=== PATIENT | female | born 1990 | race Caucasian/White ===

== ENCOUNTER → 2023-10-29 | Outpatient (CLI) | payer BC, OTHER ==
--- NOTE | 2023-10-29 14:39 | US ---
EXAMINATION TYPE: Transabdominal DATE OF EXAM: 10/29/2023 1:57 PM COMPARISON: NONE CLINICAL INDICATION: Female, 33 years old with history of Z36.89 ENCOUNTER FOR OTHER SPECIFIED ANTENA APRYL SCR; Confirm Dates EXAM PERFORMED: Transabdominal (TA) EXAM MEASUREMENTS: GESTATIONAL AGE / DATING Physician Established: (13 weeks/3 days) EDC: 05/02/2024 Dates by LMP: (13 weeks/3 days) EDC: 05/02/2024 Dates by First Scan: No previous this is first scan Dates by Current Scan for: (12 weeks/2 days) EDC: 05/10/2024 MATERNAL ANATOMY Uterus: 12.1 x 9.4 x 9.8 cm Right Ovary: 3.4x 2.6 x 2.3 cm Left Ovary: 3.2 x 2.4 x 1.7 cm Post CDS / Adnexa: wnl Presence of free fluid: No Presence of corpus luteal cyst: Right Ovary= 2.0 x 1.6 x 1.8 cm Presence of subchorionic bleed: No GESTATION / SURVEY CRL: 5.7 cm (12 weeks/2 days) MSD: wnl Heart Rate: 155 bpm Rhythm: Normal IUP: Viable IUP Nuchal Translucency 10-14wks (normal less than 3mm): 1mm Date of LMP: 07/27/2023 Single, viable IUP/ No abnormality visualized at this time IMPRESSION: Single live intrauterine with calculated ultrasound age of 12 weeks 2 days with an estimate d date of delivery of 05/10/2024.
== END | disposition home or self-care (01) ==
LOC: RADUSWWP 13:41
PROVIDERS: ATTEND Obstetrics & Gynecology
DX: Z36.89 Encounter for other specified antenatal screening (principal); Z3A.12 12 weeks gestation of pregnancy
CPT/HCPCS: 76801

== ENCOUNTER 2024-05-05 10:17 | Inpatient (IN) | payer BC, OTHER ==
[2024-04-27 15:11] VITALS: BMI 33.7
[2024-05-05] MEDS ORDERED: METHYLERGONOVINE 0.2 MG/ML 1 ML AMP IM PRN (10:36)
[2024-05-05] MEDS ORDERED: OXYTOCIN 10 UNIT/ML 1 ML VIAL IM PRN (10:36)
[2024-05-05] MEDS ORDERED: CARBOPROST TROMETHAMINE 250 MCG/ML 1 ML AMP IM PRN (10:36)
[2024-05-05] MEDS ORDERED: TRANEXAMIC 1,000 MG/100ML-NACL 1,000 MG in EMPTY BAG 1 BAG IV PRN (10:36)
[2024-05-05] MEDS ORDERED: miSOPROStoL 200 MCG TAB PO PRN (10:36)
[2024-05-05 10:58] LABS: Basophils % (A) 0 %; Eosinophils # (A) 0.1 k/uL (0-0.7); Eosinophils % (A) 1 %; HCT 35.4 % (34.0-46.0); HGB 11.3 gm/dL (11.4-16.0); Lymphocytes # (A) 1.3 k/uL (1.0-4.8); Lymphocytes % (A) 19 %; MCH 29.6 pg (25.0-35.0); MCV 92.5 fL (80.0-100.0); Monocytes # (A) 0.3 k/uL (0-1.0); Monocytes % (A) 5 %; Neutrophils # (A) 5.2 k/uL (1.3-7.7); Neutrophils % (A) 74 %; Platelet Count 299 k/uL (150-450); RBC 3.82 m/uL (3.80-5.40); RDW 12.8 % (11.5-15.5)
[2024-05-05] MEDS: CITRIC ACID-SODIUM CITRATE 15 ML CUP PO ONE (11:18)
--- NOTE | 2024-05-05 11:56 | P.HPOB ---
History of Present Illness H&P Date: 05/05/24 Chief Complaint: 39+ weeks, previous section, undesired fertility The patient is a 33-year-old 5 para 2-0-2-2 admitted at 39+ weeks as established by a 12-week ultrasound. She is admitted for repeat low-transverse section with intraoperative bilateral salpingectomy. She has signed a consent to these effect in the office. She understands the permanent nature of the bilateral salpingectomy. Risks and complications of all the procedures have been thoroughly discussed. Her has otherwise been entirely uncomplicated and group B strep status is negative. On labor and delivery, all signs are reassuring with a category 1 heart rate tracing. Obstetrical history: 5 para 2-0-2-2 with 2 term deliveries without complications. Current statistics are listed in history of present illness. EDC of 05/10/2024 was established by 12-week ultrasound. Laboratory workup demonstrates a blood type of A+ with a negative antibody screen. Rubella status is immune. The remainder of the laboratory workup was within normal limits aside from a positive urine culture which was treated and cured. Early Glucola as well as second trimester Glucola were within normal limits and group B strep status is negative. Gynecologic history: Unremarkable with no history of any infections to include STDs. Review of Systems Review of systems is confined to history of present illness. Past Medical History Past Medical History: No Reported History History of Any Multi-Drug Resistant Organisms: None Reported Past Surgical History: Section Additional Past Surgical History / Comment(s): d&c x 2 , x2 Past Anesthesia/Blood Transfusion Reactions: No Reported Reaction Additional Past Anesthesia/Blood Transfusion Reaction / Comment(s): No hx of blood transfusion to date. Past Psychological History: No Psychological Hx Reported Smoking Status: Never smoker Past Alcohol Use History: None Reported Past Drug Use History: None Reported - Past Family History Mother Family Medical History: No Reported History Medications and Allergies Home Medications Medication Instructions Recorded Confirmed Type Oil-Kpcd-Lmbkh Acid 1 each PO DAILY 10/25/13 05/05/24 History [-U Capsule] Aspirin EC [Ecotrin Low Dose] 81 mg PO QAM 04/27/24 05/05/24 History Allergies Allergy/AdvReac Type Severity Reaction Status Date / Time No Known Allergies Allergy Verified 05/05/24 10:31 Exam Vital Signs Temp Pulse Resp BP 05/05/24 10:46 96.8 F L 63 14 125/76 Intake and Output 05/04/24 05/05/24 05/05/24 22:59 06:59 14:59 Other: Weight 89.811 kg In general, this is a well-developed, well-nourished white female in no acute distress. Her heart has a regular rhythm and rate without murmur. Her lungs are clear to auscultation bilateral in all carbajal. Her abdomen is gravid, nondistended, has normal active bowel sounds, soft, nontender, and without any palpable masses aside from uterine fundus. Her extremities are without any cyanosis, clubbing, or edema and are nontender to palpation bilaterally. Digital cervical examination is deferred. Results Result Diagrams: 05/05/24 10:40 Abnormal Lab Results - Last 24 Hours (Table) 05/05/24 Range/Units 10:40 Hgb 11.3 L (11.4-16.0) gm/dL Assessment and Plan (1) Family planning Current Visit: Yes Status: Acute Code(s): Z30.09 - ENCOUNTER FOR OTH GENERAL CNSL AND ADVICE ON CONTRACEPTION SNOMED Code(s): 827492825 (2) Previous section Current Visit: No Status: Acute Code(s): Z98.89 - OTHER SPECIFIED POSTPROCEDURAL STATES * DO NOT USE * SNOMED Code(s): 655423549 (3) Term Current Visit: No Status: Acute Code(s): Z34.80 - ENCOUNTER FOR SUPRVSN OF NORMAL , UNSP TRIMESTER SNOMED Code(s): 30651867 Plan: The patient is admitted for repeat low-transverse section with intraoperative bilateral salpingectomy. As noted above, the risks and complications and thoroughly discussed and she has understood and agreed to proceed. She has a firm understanding of the permanent nature of bilateral salpingectomy.
[2024-05-05] MEDS ORDERED: ONDANSETRON 4 MG/2 ML VIAL IVP PRN (13:10)
[2024-05-05] MEDS ORDERED: LANOLIN CREAM 1 GM TUBE TOPICAL PRN (13:10)
[2024-05-05] MEDS ORDERED: diphenhydrAMINE 50 MG/ML 1 ML VIAL IVP PRN ×2 (13:10)
[2024-05-05] MEDS ORDERED: diphenhydrAMINE 25 MG CAP PO PRN (13:10)
[2024-05-05] MEDS ORDERED: NALOXONE 0.4 MG/ML 1 ML VIAL IV PRN (13:10)
[2024-05-05] MEDS ORDERED: METOCLOPRAMIDE 5 MG/ML 2 ML VIAL IVP PRN (13:10)
[2024-05-05] MEDS ORDERED: ZOLPIDEM 5 MG TAB PO PRN (13:10)
[2024-05-05] MEDS ORDERED: SIMETHICONE 80 MG CHEWABLE PO PRN (13:10)
[2024-05-05] MEDS ORDERED: OXYTOCIN 30 UNITS/500 ML NS 30 UNIT in SALINE 1 500ML.BAG IV SCH (13:15)
--- NOTE | 2024-05-05 13:17 | P.OP ---
Date of Procedure: 05/05/24 Preoperative Diagnosis: #1. 39-2/7 weeks, previous section x 2 #2. Undesired fertility Postoperative Diagnosis: Same Procedure(s) Performed: #1. Repeat low-transverse section #2. Intraoperative bilateral salpingectomy Anesthesia: spinal Surgeon: Nestor Beltran Gun Sealing Machine Operator #1: Shanae Feliciano Estimated Blood Loss (ml): 588 IV fluids (ml): 800 Urine output (ml): 100 Pathology: other (Bilateral fallopian tubes) Condition: stable Disposition: floor Operative Findings: Intraoperatively, there was a moderate amount of scarring at the level of the rectus muscles and fascia. The bladder was scarred relatively high on the uterus as well. Aside from this, the uterus, tubes, and ovaries were entirely normal to inspection and the lower uterine segment was still relatively thick. She was delivered of a viable 6 pound 12 ounce baby boy with Apgars of 9 at 1 minute and 9 at 5 minutes delivered in the occiput anterior position. The placenta was delivered manually, intact, grossly normal with a grossly normal three-vessel cord. Description of Procedure: The patient was prepped and draped in usual fashion after spinal anesthesia was administered by the anesthesiologist. A Pfannenstiel incision was made through her pre-existing scar and extended into the abdominal cavity with minimal difficulty. There was a mild to moderate amount of scarring at the level of the fascia and rectus muscles. The bladder peritoneum was noted to be scarred relatively high on the lower uterine segment and was therefore sharply dissected and reflected distally. A 2 cm incision was made in the transverse plane of the lower uterine segment to enter the uterus at which time clear fluid was noted. The incision was extended in both directions using the bandage scissors. The head was delivered up and through the incision where the nose and mouth were thoroughly suctioned. The remainder of the was delivered onto the field where the cord was doubly clamped, cut, and the infant passed resuscitative measures with weight and Apgars as noted above. A segment of cord was doubly clamped, cut, and set aside should cord gases become necessary. The placenta was delivered manually and intact as noted above. The uterus was exteriorized and the anterior cavity of the uterus swept of any remaining placental or membranous fragments. The margins of the uterine incision were grasped with Salter clamps and the incision closed in a single running locking stitch of 0 chromic catgut from margin to margin with hemostasis appearing to be excellent. The posterior cul-de-sac was suctioned with a guard followed by laparotomy sponge. After reaffirming with the patient that she wished to have her tubes removed, the right fallopian tube was elevated with a Salter clamp and divided from its underlying tissues using the LigaSure device along the entire length of the tube and the tube was then transected at the cornua where it entered the uterus. The tube was passed for pathological diagnoses. A similar operation was carried out on the left without difficulty. All of the surgical field appeared to be dry. The uterus was replaced within the abdominal cavity and the gutters swept of any remaining blood, fluid, or clot. The incision was reexamined and found to be hemostatic. The parietal peritoneum was loosely reapproximated and any points of bleeding on the layer of muscles were made hemostatic with the Bovie. The fascia was closed with 2 stitches of 0 Vicryl proceeding from the lateral margins to the midpoint. The subcutaneous tissues were irrigated, made hemostatic with the Bovie, then closed with a running stitch of 3-0 plain catgut. The skin was reapproximated with a running subcuticular stitch of 4-0 Vicryl followed by half-inch Steri-Strips placed with Mastisol. Quantitative blood loss for the case was 588 mL. There were no complications. All sponge, instrument, and needle counts were correct. The patient tolerated the procedure well and proceeded to the recovery room in stable condition. Both mother and infant are resting comfortably in recovery.
[2024-05-05] MEDS: ACETAMINOPHEN TAB 500 MG TAB PO SCH (15:51)
[2024-05-05] MEDS: LACTATED RINGERS 1,000 ML IV SCH (16:23)
[2024-05-05] MEDS: KETOROLAC 15 MG/ML 1 ML VIAL IVP PRN (20:21)
[2024-05-05] MEDS: SENNOSIDES-DOCUSATE SODIUM 1 EACH TAB PO SCH (21:08)
[2024-05-06] MEDS: diphenhydrAMINE 50 MG CAP PO PRN (00:58)
[2024-05-06 05:54] LABS: Basophils % (A) 0 %; Eosinophils # (A) 0.1 k/uL (0-0.7); Eosinophils % (A) 1 %; HCT 32.1 % (34.0-46.0); HGB 10.2 gm/dL (11.4-16.0); Lymphocytes # (A) 1.8 k/uL (1.0-4.8); Lymphocytes % (A) 22 %; MCH 29.8 pg (25.0-35.0); MCHC 31.7 g/dL (31.0-37.0); MCV 94.2 fL (80.0-100.0); Mean Platelet Volume 7.6; Monocytes # (A) 0.4 k/uL (0-1.0); Monocytes % (A) 5 %; Neutrophils # (A) 5.8 k/uL (1.3-7.7); Neutrophils % (A) 71 %; Platelet Count 248 k/uL (150-450); RBC 3.41 m/uL (3.80-5.40); WBC 8.2 k/uL (3.8-10.6)
--- NOTE | 2024-05-06 07:12 | P.PN ---
Progress Note - Text Progress Note Date: 05/06/24 Postop day 1 from under spinal anesthesia with intrathecal morphine given for postop pain management. Patient is doing well. Pain is well controlled. On visual analog scale 2/10 Mild itching present No nausea or vomiting reported. No Headache or weakness and numbness in the legs. No complications from spinal anesthesia.
--- NOTE | 2024-05-06 08:52 | P.PNOBGPC ---
Subjective - Subjective Principal diagnosis: s/p repeat section Interval history: The patient is doing well this morning and had no acute events overnight. She has no complaints this morning. She reports minimal lochia, passing flatus, voiding without difficulty, ambulating, and eating/drinking without nausea or vomiting. She is her without difficulty. She denies chest pain, shortness of breathing, fevers, or chills overnight. She denies pain or swelling in the legs. Patient reports: Reports appetite normal, Reports voiding normally, Reports pain well controlled, Reports ambulating normally [place]: doing well, nursing well Objective - Vital Signs Latest vital signs: Vital Signs Temp Pulse Resp BP Pulse Ox 05/06/24 04:30 97.8 F 52 L 16 95/59 97 05/06/24 00:00 98.1 F 54 L 16 104/65 97 05/05/24 20:00 97.9 F 55 L 16 105/67 98 05/05/24 15:15 97.2 F L 51 L 14 98/59 98 05/05/24 14:30 51 L 14 101/59 97 05/05/24 14:15 52 L 16 99/57 97 05/05/24 14:00 51 L 14 99/62 05/05/24 13:45 54 L 14 94/55 96 05/05/24 13:30 54 L 14 99/61 05/05/24 13:15 96.6 F L 63 14 115/57 96 05/05/24 10:46 96.8 F L 63 14 125/76 Intake and Output 05/05/24 05/06/24 05/06/24 22:59 06:59 14:59 Output Total 1208 700 Balance -1208 -700 Output: Urine 500 700 Uretheral ([place]) 200 Output, Quantitative 708 Blood Loss Other: # Voids 1 1 - Exam Extremities: Present: normal Abdomen: Present: normal appearance, soft Incision: Present: normal, dry Uterus: Present: normal, firm - Labs Labs: Abnormal Lab Results - Last 24 Hours (Table) 05/05/24 05/06/24 Range/Units 10:40 05:35 RBC 3.41 L (3.80-5.40) m/uL Hgb 11.3 L 10.2 L (11.4-16.0) gm/dL Hct 32.1 L (34.0-46.0) % Assessment and Plan Assessment: 33 year old now POD#1 s/p repeat section Plan: 1. Postoperative. Patient meeting all postoperative milestones appropriately. 2. Viable male infant. Doing well at bedside, going well. Dispo: Anticipate discharge home tomorrow on POD#2
[2024-05-06] MEDS: IBUPROFEN 800 MG TAB PO SCH (12:07)
[2024-05-06] MEDS ORDERED: ACETAMINOPHEN TAB 500 MG TAB PO SCH ×2 (16:00)
[2024-05-07 04:43] VITALS: RESP 16
[2024-05-07 08:29] VITALS: BP 97/66; PULSE 55; TEMP 98
--- NOTE | 2024-05-07 09:13 | P.DS ---
Providers Date of admission: 05/05/24 10:17 Expected date of discharge: 05/07/24 Attending physician: Nestor Beltran Primary care physician: Stated None - Discharge Diagnosis(es) (1) Family planning Current Visit: Yes Status: Acute (2) Previous section Current Visit: Yes Status: Acute (3) Term Current Visit: Yes Status: Acute (4) S/P section Current Visit: Yes Status: Acute Hospital Course: The patient is a 33-year-old 5 para 2-0-2-2 admitted at 39-2/7 weeks by good dating parameters. She is admitted for repeat low-transverse section with intraoperative bilateral salpingectomy. Her was uncomplicated and group B strep status is negative. On labor and delivery, all signs were reassuring with a category 1 heart rate tracing. She was taken to the operating room where she underwent the above procedures in an uncomplicated fashion. She was delivered of a viable 6 pound 12 ounce baby boy with Apgars of 9 at 1 minute and 9 at 5 minutes. Her and postoperative course was unremarkable with vital signs remaining stable and her temperature was afebrile throughout. She was deemed stable for discharge on and postoperative day #2 and was discharged home to follow-up in the office in 2 weeks for an incision check in 6 weeks routinely. Discharge instructions included calling for any significantly increased bleeding or foul- smelling lochia, significantly increased fever abdominal pain, perineal complaints, breast complaints, incisional complaints, or anything else that concerned her. She was additionally instructed to have nothing in the vagina for at least 6 weeks time to include intercourse. She understood her instructions and agrees to follow-up as noted above. Discharge medications included continued vitamins as she has opted to breast-feed as well as [id number] analgesic pain medications. She was provided a prescription for oxycodone 5 mg, 1-2 p.o. every 6 hours as needed pain, #20 dispensed with no refills. Maternal blood type is a positive and rubella status is immune. Procedures: #1. Repeat low-transverse section #2. Intraoperative bilateral salpingectomy Patient Condition at Discharge: Stable Plan - Discharge Summary Discharge Rx Participant: No New Discharge Prescriptions: No Action Djl-Vtbj-Yjvhn Acid [-U Capsule] 1 each PO DAILY Aspirin EC [Ecotrin Low Dose] 81 mg PO QAM Discharge Medication List Pos-Aqpc-Qjsom Acid [-U Capsule] 1 each PO DAILY 10/25/13 [History] Aspirin EC [Ecotrin Low Dose] 81 mg PO QAM 04/27/24 [History] Follow up Appointment(s)/Referral(s): Nestor Beltran MD [STAFF PHYSICIAN] - 05/19/24 11:15 am (Post Appointment 06-15-2024 at 11:15am) Discharge Disposition: HOME SELF-CARE
== END 2024-05-07 14:40 | disposition home or self-care (01) | DRG 785 ==
LOC: 4FBP 10:17
PROVIDERS: ADMIT Obstetrics & Gynecology; ATTEND Obstetrics & Gynecology
PROC: 0UB70ZZ Excision of Bilateral Fallopian Tubes, Open Approach (ICD-10-PCS; 2024-05-05)
PROC: 10D00Z1 Extraction of Products of Conception, Low, Open Approach (ICD-10-PCS; principal; 2024-05-05 12:00)
DX: O34.211 Maternal care for low transverse scar from previous cesarean delivery (principal); Z79.82 Long term (current) use of aspirin; Z3A.39 39 weeks gestation of pregnancy; Z37.0 Single live birth; Z30.2 Encounter for sterilization; O99.73 Diseases of the skin and subcutaneous tissue complicating the puerperium; L29.9 Pruritus, unspecified
CPT/HCPCS: 85025; 86850; 86900; 86901; 88302